=== PATIENT | male | born 1960 | race Caucasian/White ===

== ENCOUNTER 2017-06-06 17:38 | Emergency (ER) | payer BC ==
[~2017-06-06] VITALS: Ht 175.3 cm; Wt 143.5 kg
[2017-06-06 17:47] VITALS: TEMP 36.8; Ht 175.3 cm; Wt 143.5 kg
[2017-06-06] MEDS ORDERED: CYCLOBENZAPRINE HCL 10 MG TAB PO STA (18:13)
[2017-06-06] MEDS ORDERED: LORAZEPAM 2 MG/ML 1 ML VIAL IV STA (18:13)
[2017-06-06] MEDS ORDERED: SODIUM CHLORIDE 0.9% 1000ML 500 ML IV STA (18:13)
[2017-06-06 18:20] VITALS: O2SAT 97
--- NOTE | 2017-06-06 18:29 | DIAGNOSTIC IMAGING REPORT ---
CHEST ONE VIEW PORTABLE CLINICAL HISTORY: CHEST PAIN pain COMPARISON STUDY: No previous studies for comparison. FINDINGS: Moderate cardiomegaly. Prior median sternotomy. Diaphragms smooth. Lungs are clear. IMPRESSION: Cardiomegaly. Otherwise negative study The above report was generated using voice recognition software. It may contain grammatical, syntax or spelling errors. Electronically signed by: Antonio Meredith M.D. 06/06/2017 6:28 PM Dictated Date/Time: 06/06/2017 6:27 PM
[2017-06-06 18:44] LABS: HEMATOCRIT 38.3 % (42-52); MEAN CELL VOLUME 88.7 fL (80-100); MEAN CORPUSCULAR HEMOGLOBIN 30.1 pg (25-34); MEAN CORPUSCULAR HGB CONC 33.9 g/dl (32-36); MEAN PLATELET VOLUME 12.8 fL (7.4-10.4); PLATELET COUNT 148 K/uL (130-400); RED BLOOD COUNT 4.32 M/uL (4.7-6.1); WHITE BLOOD COUNT 8.01 K/uL (4.8-10.8)
[2017-06-06 18:52] LABS: INR 1.2 (0.9-1.1); PARTIAL THROMBOPLASTIN RATIO 1.7; PROTHROMBIN TIME (PATIENT) 12.6 SECONDS (9.0-12.0)
[2017-06-06 18:59] LABS: BUN/CREATININE RATIO 17.4 (10-20); CALCIUM 9.1 mg/dl (8.5-10.1); CREATININE 2.1 mg/dl (0.60-1.40); POTASSIUM 4.3 mmol/L (3.5-5.1)
[2017-06-06] MEDS ORDERED: SODIUM CHLORIDE 0.9% 500ML 500 ML IV STA ×2 (19:00→20:01)
--- NOTE | 2017-06-06 19:06 | EMERGENCY ROOM VISIT NOTE ---
History Report prepared by Radha: Lexi Phan Under the Supervision of: Dr. Brenden Linda M.D. First contact with patient: 18:01 Chief Complaint: BACK PAIN Stated Complaint: BACK PAIN History of Present Illness The patient is a 57 year old male who presents to the Emergency Room with complaints of an episode of back pain starting a week ago. The patient states that he has felt like his back has been 1 turn away from "locking up." The patient denies any trauma or fall. He states that this morning he woke up with a stiff neck. The patient reports that he took a bus ride today and during that entire trip his neck still felt stiff. He states that while tailgating he started to experience some pain. He rated the pain as a 3/10 in severity. The patient states that when he was walking into the [email or web address] and up to the top of the stadium he started to experience an increase in pain. He rated his pain as a 10/10 in severity. He states that when he got up to the top he couldn' t sit or lift his head up. He reports that he felt like just laying down. He reports that he noticed his chest was heavy, but related it to his heavy breathing. He denies any chest pain. The patient reports that if he kept his head down and was standing the pain was somewhat relieved. He states that movement made the pain worse. The patient states he had family ask the medical station for Acetaminophen and reports that they told him he had to come to the station to receive it. He states they came up and got him down using a chair. He states when he got to the station they gave him 1 g Acetaminophen, 4 baby Aspirin and a Nitroglycerin pill. He reports that they provided no relief. He currently rates his pain as a 6/10 in severity. The patient notes that he has had a quadruple bypass in 2008 with two stent placements and another stent placement in 2009. He notes a history of atrial fibrillation. He denies ever having a heart attack and any recent heart issues. He notes he takes Xarelto and is on a baby Aspirin daily. Source of History: patient Onset: a week ago Position: back Symptom Intensity: 6/10 Timing: other (episode) Modifying Factors (Worsening): movement Modifying Factors (Relieving): other (standing and head down) Associated Symptoms: + neck pain, No chest pain Note: The patient denies any recent trauma or falls. Review of Systems See HPI for pertinent positives & negatives. A total of 10 systems reviewed and were otherwise negative. Past Medical & Surgical Medical Problems: (1) Afib Surgical Problems: (1) History of quadruple bypass (2) Hx of heart artery stent Family History No pertinent family history Social History Smoking Status: Former Smoker Drug Use: none Marital Status: Housing Status: lives with family Current/Historical Medications Scheduled Aliskiren Fumarate (Tekturna), 300 MG PO DAILY Aspirin (Aspirin Ec), 81 MG PO DAILY Atorvastatin (Lipitor), 1 TAB PO DAILY Cholecalciferol (Vitamin D), 2 TABS PO DAILY Dicyclomine Hcl (Dicyclomine Hcl), 1 TAB PO BID Fesoterodine Fumarate (Toviaz), 1 TAB PO DAILY Glimepiride (Glimepiride), 1 TAB PO BID Insulin Degludec (Tresiba Flextouch), 63 UNITS SQ HS Insulin Lispro (Human) (Humalog Kwikpen), 10 UNITS SQ TIDM Nebivolol Hcl (Bystolic), 1 TAB PO DAILY Ocuvite Preservision (Ocuvite Preservision), 2 TAB PO DAILY Omeprazole (Prilosec), 1 CAP PO DAILY Rivaroxaban (Xarelto), 20 MG PO DAILY Spironolactone (Aldactone), 25 MG PO DAILY Valsartan/Hctz (Diovan Hct 320MG/25MG), 1 TAB PO DAILY Allergies Coded Allergies: Metformin (Unverified Allergy, Intermediate, BLOTCHES ON SKIN, 06/06/17) Penicillins (Unverified Allergy, Unknown, UNKNOWN, 06/06/17) Physical Exam Vital Signs Date Time Temp Pulse Resp B/P (MAP) Pulse Ox O2 Delivery O2 Flow Rate FiO2 06/06/17 21:31 62 20 182/85 97 06/06/17 20:19 61 20 122/86 96 Room Air 06/06/17 19:21 61 18 137/86 96 Room Air 06/06/17 18:20 97 Room Air 06/06/17 17:47 36.8 67 16 119/73 97 Physical Exam GENERAL: Patient is in no acute distress. HEENT: No acute trauma, normocephalic atraumatic, mucous membranes moist, no nasal congestion, no scleral icterus. NECK: No stridor, no adenopathy, no meningismus, trachea is midline. Tender along the right trapezius musculature. LUNGS: Clear to auscultation bilaterally, no wheeze, no rhonchi, breath sounds equal. HEART: Without murmurs gallops or rubs, regular rate and rhythm. ABDOMEN: Soft, nontender, bowel sounds positive, no hernias, no peritonitis. BACK: Tender to the upper lumbar musculature, more so on the left. EXTREMITIES: No cyanosis, mild bilateral pedal edema, full range of motion of all the joints without pain or difficulty, no signs for acute trauma. NEUROLOGIC: Oriented x 3, no acute motor or sensory deficits, no focal weakness. SKIN: No rash, no jaundice, no diaphoresis. Medical Decision & Procedures ER Provider Diagnostic Interpretation: Radiology results as stated below per my review and radiologist interpretation: CHEST ONE VIEW PORTABLE CLINICAL HISTORY: CHEST PAIN pain COMPARISON STUDY: No previous studies for comparison. FINDINGS: Moderate cardiomegaly. Prior median sternotomy. Diaphragms smooth. Lungs are clear. IMPRESSION: Cardiomegaly. Otherwise negative study The above report was generated using voice recognition software. It may contain grammatical, syntax or spelling errors. Electronically signed by: Antonio Meredith M.D. 06/06/2017 6:28 PM Dictated Date/Time: 06/06/2017 6:27 PM (CHEST) THORAX WITHOUT CT DOSE: 3521.69 mGy.cm HISTORY: Pain eval aorta, renal issues, no contrast TECHNIQUE: Multiaxial CT images of the chest were performed without contrast. A dose lowering technique was utilized adhering to the principles of ALARA. COMPARISON: None. FINDINGS: Limited study due to the absence of contrast enhancement. Mild cardiomegaly. Moderate atherosclerotic change thoracic aorta. No evidence for aneurysm. Extensive calcification of the coronary arterial vasculature. Median sternotomy. No acute infiltrate. Lungs are considered clear. Several small micronodules the mid to lower lungs. Moderate degenerative changes thoracic spine with no evidence for compression deformity. IMPRESSION: Chronic and postoperative change. No acute process the chest. The above report was generated using voice recognition software. It may contain grammatical, syntax or spelling errors. Electronically signed by: Antonio Meredith M.D. 06/06/2017 7:44 PM Dictated Date/Time: 06/06/2017 7:41 PM ABD/PELVIS NO IV OR ORAL CONT CT DOSE: HISTORY: Pain. Back pain. eval aorta, renal issues, no contrast TECHNIQUE: Multiaxial CT images of the abdomen and pelvis were performed without contrast. A dose lowering technique was utilized adhering to the principles of ALARA. COMPARISON STUDY: None. FINDINGS: Lung bases are clear. Prior cholecystectomy. Liver spleen and pancreas are unremarkable. Moderate cortical scarring of the kidneys bilaterally. Several nonobstructing renal calcifications. Atherosclerotic change abdominal aorta and iliac vasculature with no evidence for aneurysm. Nonobstructive bowel pattern. Bladder is midline. Appendix is normal. Degenerative changes of the thoracolumbar spine with no acute compression deformity. Scattered colonic diverticulosis with no evidence for acute diverticulitis. IMPRESSION: 1. No acute process of the abdomen or pelvis. 2. Prior cholecystectomy. 3. Mild renal atrophy bilaterally. 4. No evidence for aneurysm of the abdominal or pelvic arterial vasculature. 5. Nonobstructive bowel pattern. Normal appendix. The above report was generated using voice recognition software. It may contain grammatical, syntax or spelling errors. Electronically signed by: Antonio Meredith M.D. 06/06/2017 7:48 PM Dictated Date/Time: 06/06/2017 7:44 PM Laboratory Results 06/06/17 17:37 06/06/17 17:37 Test 06/06/17 17:37 06/06/17 20:36 Red Blood Count 4.32 M/uL (4.7-6.1) Mean Corpuscular Volume 88.7 fL (80-100) Mean Corpuscular Hemoglobin 30.1 pg (25-34) Mean Corpuscular Hemoglobin Concent 33.9 g/dl (32-36) RDW Standard Deviation 45.1 fL (36.4-46.3) RDW Coefficient of Variation 13.8 % (11.5-14.5) Mean Platelet Volume 12.8 fL (7.4-10.4) Prothrombin Time 12.6 SECONDS (9.0-12.0) Prothromb Time International Ratio 1.2 (0.9-1.1) Activated Partial Thromboplast Time 42.9 SECONDS (21.0-31.0) Partial Thromboplastin Ratio 1.7 Anion Gap 7.0 mmol/L (3-11) Est Creatinine Clear Calc Drug Dose 53.5 ml/min Estimated GFR () 38.8 Estimated GFR (Non- 33.4 BUN/Creatinine Ratio 17.4 (10-20) Calcium Level 9.1 mg/dl (8.5-10.1) Total Bilirubin 0.3 mg/dl (0.2-1) Aspartate Amino Transf (AST/SGOT) 27 U/L (15-37) Alanine Aminotransferase (ALT/SGPT) 20 U/L (12-78) Alkaline Phosphatase 86 U/L (45-117) Total Protein 7.4 gm/dl (6.4-8.2) Albumin 3.6 gm/dl (3.4-5.0) Globulin 3.8 gm/dl (2.5-4.0) Albumin/Globulin Ratio 1.0 (0.9-2) Bedside Troponin I < 0.030 ng/ml (0-0.045) Laboratory results reviewed by me. Medications Administered Medications (Trade) Dose Ordered Sig/Elijah Route Start Time Stop Time Status Last Admin Dose Admin Sodium Chloride 500 ml @ 999 mls/hr Q31M STAT IV 06/06/17 18:13 06/06/17 18:43 DC 06/06/17 18:34 999 MLS/HR Cyclobenzaprine HCl (Flexeril Tab) 10 mg NOW STAT PO 06/06/17 18:13 06/06/17 18:16 DC 06/06/17 18:34 10 MG Lorazepam (Ativan Inj) 0.5 mg NOW STAT IV 06/06/17 18:13 06/06/17 18:16 DC 06/06/17 18:34 0.5 MG Sodium Chloride 500 ml @ 999 mls/hr Q31M STAT IV 06/06/17 19:00 06/06/17 19:30 DC 06/06/17 19:21 999 MLS/HR Sodium Chloride 500 ml @ 999 mls/hr Q31M STAT IV 06/06/17 20:01 06/06/17 20:31 DC 06/06/17 20:18 999 MLS/HR Cyclobenzaprine HCl (FLEXERIL 10MG Home Pack) 1 homepack UD ONCE PO 06/06/17 21:15 06/06/17 21:16 DC 06/06/17 21:20 1 HOMEPACK ECG Indication: back/shoulder pain Rate (beats per minute): 61 Rhythm: normal sinus Findings: RBBB (incomplete), no acute ischemic change, no ectopy, other (old inferior, 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 A complete history and physical exam was performed. 1812: Ordered Ativan Inj 0.5 mg IV, Flexeril Tab 10 mg PO, NSS 500 ml @ 999 mls/ hr IV. 1899: Ordered NSS 500 ml @ 999 mls/hr IV. 2000: Ordered NSS 500 ml @ 999 mls/hr IV. 2011: I reevaluated the patient and he is feeling fine. 2057: Reevaluated the patient. Discussed results and discharge instructions: He verbalized understanding and agreement. The patient is ready for discharge. 2114: Ordered Cyclobenzaprine 1 homepack PO. Medical Decision Differential diagnoses include musculoskeletal pain, cardiac ischemia, aortic dissection, nerve impingement, muscle spasm, fracture. There is no leukocytosis or concerning anemia. No significant electrolyte abnormality. Some renal insufficiency was noted with a creatinine of 2.1. No hepatitis. A mild coagulopathy was seen consistent likely with his Xarelto use. EKG shows a sinus rhythm with some old changes, no acute ischemic changes seen. Cardiac enzyme testing 2 is not consistent with acute cardiac injury. Chest x-ray does not show pneumonia or pneumothorax. There is no CHF. Abdominal and pelvis CT does not show any evidence for aortic dissection, no acute process about the abdomen or pelvis. Chest CT does not show any evidence for aortic dissection or aneurysm. No pneumonia. The patient received IV saline for hydration. He received oral Flexeril and IV Ativan for muscle relaxation. The patient is doing better. I suspect the back pain and neck pain are both musculoskeletal. He has been reassured. The patient was told about the higher creatinine value. He understands and will have this rechecked. His creatinine has been higher as of late but he believes 2.1 is the highest it has been. He was encouraged to drink more fluids. Patient will be discharged with Flexeril for muscle relaxation. Some ice to the sore areas was suggested. Heat in about a day or so may be beneficial as well. Impression Primary Impression: Lower back pain Additional Impressions: Neck pain on right side Chest pressure Scribe Attestation The scribe's documentation has been prepared under my direction and personally reviewed by me in its entirety. I confirm that the note above accurately reflects all work, treatment, procedures, and medical decision making performed by me. Departure Information Dispostion Home / Self-Care Forms HOME CARE DOCUMENTATION FORM, IMPORTANT VISIT INFORMATION Patient Instructions My [facility] Additional Instructions flexeril 1 tab as needed for muscle relaxation, every 8 hours max ice to the sore areas for 24 hours and then switch to using heat rest see ivette bejarano when return home have your creatinine rechecked it was 2.1 today as discussed massage should help heart testing was ok Problem Qualifiers
[2017-06-06] MEDS ORDERED: INSU1INJ33 SQ (19:08)
[2017-06-06] MEDS ORDERED: VALS160T60 PO (19:08)
[2017-06-06] MEDS ORDERED: MULT-190 PO (19:08)
[2017-06-06] MEDS ORDERED: NEBI20TA2 PO (19:08)
[2017-06-06] MEDS ORDERED: FESO4TAB PO (19:08)
[2017-06-06] MEDS ORDERED: SPIR25TA PO (19:08)
[2017-06-06] MEDS ORDERED: [UNRECOGNIZED DRUG - CODE] PO (19:08)
[2017-06-06] MEDS ORDERED: CHOL20009 PO (19:08)
[2017-06-06] MEDS ORDERED: GLIM4TAB2 PO (19:08)
[2017-06-06] MEDS ORDERED: INSU100I2 SQ (19:08)
[2017-06-06] MEDS ORDERED: ATOR-24 PO (19:08)
--- NOTE | 2017-06-06 19:45 | DIAGNOSTIC IMAGING REPORT ---
(CHEST) THORAX WITHOUT CT DOSE: 3521.69 mGy.cm HISTORY: Pain eval aorta, renal issues, no contrast TECHNIQUE: Multiaxial CT images of the chest were performed without contrast. A dose lowering technique was utilized adhering to the principles of ALARA. COMPARISON: None. FINDINGS: Limited study due to the absence of contrast enhancement. Mild cardiomegaly. Moderate atherosclerotic change thoracic aorta. No evidence for aneurysm. Extensive calcification of the coronary arterial vasculature. Median sternotomy. No acute infiltrate. Lungs are considered clear. Several small micronodules the mid to lower lungs. Moderate degenerative changes thoracic spine with no evidence for compression deformity. IMPRESSION: Chronic and postoperative change. No acute process the chest. The above report was generated using voice recognition software. It may contain grammatical, syntax or spelling errors. Electronically signed by: Antonio Meredith M.D. 06/06/2017 7:44 PM Dictated Date/Time: 06/06/2017 7:41 PM
--- NOTE | 2017-06-06 19:50 | DIAGNOSTIC IMAGING REPORT ---
ABD/PELVIS NO IV OR ORAL CONT CT DOSE: HISTORY: Pain. Back pain. eval aorta, renal issues, no contrast TECHNIQUE: Multiaxial CT images of the abdomen and pelvis were performed without contrast. A dose lowering technique was utilized adhering to the principles of ALARA. COMPARISON STUDY: None. FINDINGS: Lung bases are clear. Prior cholecystectomy. Liver spleen and pancreas are unremarkable. Moderate cortical scarring of the kidneys bilaterally. Several nonobstructing renal calcifications. Atherosclerotic change abdominal aorta and iliac vasculature with no evidence for aneurysm. Nonobstructive bowel pattern. Bladder is midline. Appendix is normal. Degenerative changes of the thoracolumbar spine with no acute compression deformity. Scattered colonic diverticulosis with no evidence for acute diverticulitis. IMPRESSION: 1. No acute process of the abdomen or pelvis. 2. Prior cholecystectomy. 3. Mild renal atrophy bilaterally. 4. No evidence for aneurysm of the abdominal or pelvic arterial vasculature. 5. Nonobstructive bowel pattern. Normal appendix. The above report was generated using voice recognition software. It may contain grammatical, syntax or spelling errors. Electronically signed by: Antonio Meredith M.D. 06/06/2017 7:48 PM Dictated Date/Time: 06/06/2017 7:44 PM
[2017-06-06] MEDS ORDERED: VALS320T2 PO (19:58)
[2017-06-06] MEDS ORDERED: RIVA1TAB4 PO (19:59)
[2017-06-06] MEDS ORDERED: DICY20TA10 PO (20:00)
[2017-06-06] MEDS ORDERED: OMEP40CA41 PO (20:00)
[2017-06-06] MEDS ORDERED: ASPI81TA28 PO (20:00)
[2017-06-06] MEDS ORDERED: FLEXERIL HOME PACK 10 MG VIAL PO ONE (21:15)
[2017-06-06 21:31] VITALS: BP 182/85; PULSE 62; O2SAT 97
== END 2017-06-06 21:33 | disposition home or self-care (01) ==
LOC: EDBD 17:38 → C.EDA 17:40
DX: M54.5 Low back pain (principal); M54.2 Cervicalgia; R07.89 Other chest pain; I45.10 Unspecified right bundle-branch block; I48.91 Unspecified atrial fibrillation; Z95.2 Presence of prosthetic heart valve; Z79.01 Long term (current) use of anticoagulants; Z79.4 Long term (current) use of insulin; Z79.82 Long term (current) use of aspirin; Z79.899 Other long term (current) drug therapy